=== PATIENT | male | born 1975 ===

== ENCOUNTER 2016-08-23 20:45 | Emergency (ER) | payer SELFPAY ==
[2016-08-23 20:53] VITALS: RESP 16; TEMP 98.4
--- NOTE | 2016-08-23 21:42 | EDPHY ---
H & P Smoking Status: Never smoked Time Seen by Provider: 08/23/16 21:41 HPI/ROS: CHIEF COMPLAINT: Medication request HISTORY OF PRESENT ILLNESS: 41-year-old male presents emergency department requesting a prescription for a sedative prior to his flight tomorrow. Patient is flying to the [facility] on an overnight flight. Patient has known anxiety with airplane flights. He reports he has not flown in 7 years. 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 Patient states he has taken Xanax in the past for this many years ago. (Gail Cabrera) Physical Exam: GEN: Awake, alert, oriented, no acute distress RESP: nl resp effort MSK: Normal appearing SKIN: no rash Psych: Denies suicidal ideation, homicidal ideation. (Gail Cabrera) Constitutional: Initial Vital Signs Temperature (C) 36.9 C 08/23/16 20:51 Heart Rate 93 08/23/16 20:51 Respiratory Rate 16 08/23/16 20:51 Blood Pressure 145/98 H 08/23/16 20:51 O2 Sat (%) 98 08/23/16 20:51 O2 Delivery Mode Room Air Allergies/Adverse Reactions: No Known Allergies Allergy (Unverified 08/23/16 20:51) Home Medications: Medication Instructions Recorded LORazepam [Ativan (*)] 1 mg PO Q8 PRN #2 tab 08/23/16 MDM/Departure - [facility] ED Course/Re-evaluation: The patient wasevaluatedand managed by themfllevel provider. My co- signature indicates that Ever reviewed this chart and I agree with the findings and plan of care asdocumented. I am the secondary supervising physician. (Bonnie Higginbotham) - Depart Disposition: Home, Routine, Self-Care Clinical Impression: Medication requested Condition: Good Instructions: Anxiety (ED) Additional Instructions: Take 1 mg of lorazepam every 8 hours as needed for anxiety. Take this 30 minutes before your airline flight. Prescriptions: LORazepam [Ativan (*)] 1 mg PO Q8 PRN #2 tab PRN Reason: Anxiety Referrals: NONE *PRIMARY CARE P,. [Primary Care Provider] - As per Instructions
[2016-08-23 22:07] VITALS: BP 142/76; PULSE 81; O2SAT 97
== END 2016-08-23 21:55 | disposition home or self-care (01) ==
DX: Z76.0 Encounter for issue of repeat prescription (principal)